=== PATIENT | male | born 1955 | race Caucasian/White ===

== ENCOUNTER 2017-09-15 11:01 | Emergency (ER) | payer BC ==
[2017-09-15 11:12] VITALS: BP 180/98
[2017-09-15] MEDS ORDERED: Aspirin 81 MG Tab.Chew PO ONE (11:36)
[2017-09-15] MEDS ORDERED: Sodium Chloride 0.9% 10 ML Syringe FLUSH PRN (11:36)
--- NOTE | 2017-09-15 11:42 | EDM.PDOC ---
ED HPI GENERAL MEDICAL PROBLEM - General Chief Complaint: Chest Pain Stated Complaint: SOB AND CHEST TIGHTNESS Time Seen by Provider: 09/15/17 11:38 Source of Information: Reports: Patient History Limitations: Reports: No Limitations - History of Present Illness INITIAL COMMENTS - FREE TEXT/NARRATIVE: 62-year-old male presents for evaluation and treatment of chest pain and shortness of breath. Patient reports she's been feeling unwell for the last week. He states yesterday he developed a tightness, achiness to the left side of his chest radiating to his left shoulder. He reports associated symptoms of nausea. He states that he gets very diaphoretic with exertion. Denies any current chest pain or discomfort. Denies any current shortness of breath. He states that he appreciated when he went outside this seemed to relieve his shortness of breath and chest discomfort. No edema, lightheadedness, dizziness, syncope or pain in the legs. Patient takes a baby aspirin daily. No history of any previous heart attacks. He did have a stress test about for 5 years ago which was unremarkable. Reports family history of father had an AK in the late 60s and grandparents with how however, they were older. Patient is not on any diabetic medications. He reports he is a borderline diabetic. Risk factors include morbid obesity, hypertension and hypercholesterolemia. He is not on any medications for his hypercholesterolemia or hypertension. Patient reports that he does get anxious and has panic attacks. He also talks about his neighbor who yesterday, unexpectedly. Left Chest Pain Score (Numeric/FACES): 1 - Related Data Allergies Allergy/AdvReac Type Severity Reaction Status Date / Time No Known Allergies Allergy Verified 09/15/17 11:13 Home Meds: Home Meds Allopurinol [Zyloprim] 300 mg PO DAILY 09/15/17 [History] Aspirin 81 mg PO DAILY 09/15/17 [History] Diclofenac Epolamine [Flector] 150 mg PO DAILY 09/15/17 [History] Gabapentin [Gralise] 300 mg PO DAILY 09/15/17 [History] Zolpidem [Ambien CR] 12.5 mg PO DAILY 09/15/17 [History] traMADol [Ultram] 100 mg PO Q4H PRN 09/15/17 [History] Past Medical History HEENT History: Reports: Impaired Vision Cardiovascular History: Reports: High Cholesterol Musculoskeletal History: Reports: Arthritis, Back Pain, Chronic Psychiatric History: Reports: Other (See Below) Other Psychiatric History: Patient reports severe claustrophobia Endocrine/Metabolic History: Reports: Obesity/BMI 30+ - Past Surgical History Neurological Surgical History: Reports: Lumbar Spine Other Neurological Surgeries/Procedures: L 4-5-6 Musculoskeletal Surgical History: Reports: Knee Replacement, Other (See Below) Other Musculoskeletal Surgeries/Procedures:: low back surgery L4-5-6 Social & Family History - Family History Family Medical History: Noncontributory ED ROS GENERAL - Review of Systems Review Of Systems: See Below Constitutional: Reports: Malaise, Diaphoresis (with light exertion). Denies: Fever, Decreased Appetite Respiratory: Reports: Shortness of Breath Cardiovascular: Reports: Chest Pain. Denies: Edema, Lightheadedness, Syncope GI/Abdominal: Reports: Nausea. Denies: Abdominal Pain, Diarrhea, Decreased Appetite, Vomiting Musculoskeletal: Reports: Arm Pain. Denies: Neck Pain, Back Pain Neurological: Denies: Syncope ED EXAM, GENERAL - Physical Exam Exam: See Below Exam Limited By: No Limitations General Appearance: Alert, WD/WN, No Apparent Distress Ears: Normal External Exam Nose: Normal Inspection Throat/Mouth: Normal Inspection, Normal Lips, Normal Voice, No Airway Compromise Respiratory/Chest: No Respiratory Distress, Lungs Clear, Normal Breath Sounds, Chest Non-Tender Cardiovascular: Normal Peripheral Pulses, Regular Rate, Rhythm, No Murmur GI/Abdominal: Soft, Non-Tender Neurological: Alert, Oriented, Normal Cognition Psychiatric: Normal Affect, Normal Mood Skin Exam: Warm, Dry, Normal Color EKG INTERPRETATION EKG Date: 09/15/17 Time: 11:10 Rhythm: NSR Rate (Beats/Min): 84 [place]: Normal P-Wave: Present QRS: RBBB ST-T: Normal QT: Normal EKG Interpretation Comments: NSR at 84 bpm. RBBB. No acute changes from EKG. Course - Vital Signs Last Recorded V/S: Last Vital Signs Temp 36.3 C 09/15/17 11:08 Pulse 86 09/15/17 11:08 Resp 16 09/15/17 11:08 BP 180/98 H 09/15/17 11:08 Pulse Ox 99 09/15/17 11:08 - Orders/Labs/Meds Orders: Active Orders 24 hr Category Date Time Status Cardiac Monitoring [RC] . DIRECTED Care 09/15/17 11:36 Active EKG 12 Lead [EKG Documentation Completion] [RC] STAT Care 09/15/17 11:36 Active Peripheral IV Care [RC] . DIRECTED Care 09/15/17 11:37 Active Peripheral IV Insertion Adult [OM.PC] Routine Oth 09/15/17 11:36 Ordered Labs: Laboratory Tests 09/15/17 09/15/17 09/15/17 Range/Units 11:58 11:58 11:58 WBC 8.63 (4.23-9.07) K/mm3 RBC 5.24 (4.63-6.08) M/mm3 Hgb 14.5 (13.7-17.5) gm/L Hct 44.4 (40.1-51.0) % MCV 84.7 (79.0-92.2) fl MCH 27.7 (25.7-32.2) pg MCHC 32.7 (32.2-35.5) g/dl RDW Std Deviation 46.8 H (35.1-43.9) fL Plt Count 283 (163-337) K/mm3 MPV 8.7 L (9.4-12.3) fl Neut % (Auto) 68.3 H (34.0-67.9) % Lymph % (Auto) 19.1 L (21.8-53.1) % [place] % (Auto) 9.5 (5.3-12.2) % Eos % (Auto) 2.2 (0.8-7.0) Baso % (Auto) 0.3 (0.1-1.2) % Neut # (Auto) 5.89 H (1.78-5.38) K/mm3 Lymph # (Auto) 1.65 (1.32-3.57) K/mm3 [place] # (Auto) 0.82 (0.30-0.82) K/mm3 Eos # (Auto) 0.19 (0.04-0.54) K/mm3 Baso # (Auto) 0.03 (0.01-0.08) K/mm3 PT 10.7 (8.0-13.0) SECONDS INR 1.00 APTT 29 (22-36) SECONDS Sodium 140 (136-145) mEq/L Potassium 4.6 (3.5-5.1) mEq/L Chloride 102 (98-107) mEq/L Carbon Dioxide 28 (21-32) mEq/L Anion Gap 14.6 (5-15) BUN 15 (7-18) mg/dL Creatinine 1.1 (0.7-1.3) mg/dL Est Cr Clr Drug Dosing 72.82 mL/min Estimated GFR (MDRD) > 60 (>60) mL/min BUN/Creatinine Ratio 13.6 L (14-18) Glucose 115 (80-115) mg/dL Calcium 9.4 (8.5-10.1) mg/dL Total Bilirubin 0.3 (0.2-1.0) mg/dL AST 45 H (15-37) U/L ALT 46 (16-63) U/L Alkaline Phosphatase 98 (46-116) U/L CK-MB (CK-2) 0.7 (0-3.6) ng/ml Troponin I < 0.017 (0.00-0.056) ng/mL Total Protein 7.9 (6.4-8.2) g/dl Albumin 3.9 (3.4-5.0) g/dl Globulin 4.0 gm/dL Albumin/Globulin Ratio 1.0 (1-2) Meds: Medications Discontinued Medications Generic Name Dose Route Start Last Admin Trade Name Freq PRN Reason Stop Dose Admin Aspirin 324 mg 09/15/17 11:36 09/15/17 11:46 Aspirin PO 09/15/17 11:37 324 mg ONETIME ONE Administration Sodium Chloride 10 ml 09/15/17 11:36 09/15/17 11:47 Saline Flush FLUSH 10 ml ASDIRECTED PRN Administration Keep Vein Open - Radiology Interpretation Free Text/Narrative:: Chest: Portable view of the chest was obtained. Comparison: No prior chest x-ray. Heart size and mediastinum are within normal limits for portable technique. Lungs are clear. Bony structures are grossly intact. Impression: 1. Nothing acute is identified on portable chest x-ray. - Re-Assessments/Exams Free Text/Narrative Re-Assessment/Exam: 09/15/17 14:00 I reviewed the labs, EKG and imaging with the patient. He has had no chest discomfort or shortness of breath since entering ER. I will have him follow-up with his primary care provider for recheck of his symptoms as well as to discuss a stress test since it has been about 4-5 years since his last stress test. Discharge instructions as documented. Departure - Departure Time of Disposition: 14:01 Disposition: Home, Self-Care 01 Condition: Fair Clinical Impression: Chest pain Qualifiers: Chest pain type: unspecified Qualified Code(s): R07.9 - Chest pain, unspecified Instructions: Nonspecific Chest Pain Referrals: Rosie Castellano [facility] [Primary Care Provider] - Forms: ED Department Discharge Additional Instructions: Continue with your current plan of care. Recommend follow-up with your primary care provider within 2 weeks for recheck of your symptoms. Also discuss a stress test as it may be time to revisit a stress test. Please return to the ER for symptoms change or worsen. - My Orders Last 24 Hours: My Active Orders 09/15/17 11:36 Cardiac Monitoring [RC] . DIRECTED EKG 12 Lead [EKG Documentation Completion] [RC] STAT Peripheral IV Insertion Adult [OM.PC] Routine 09/15/17 11:37 Peripheral IV Care [RC] . DIRECTED - Assessment/Plan Last 24 Hours: My Active Orders 09/15/17 11:36 Cardiac Monitoring [RC] . DIRECTED EKG 12 Lead [EKG Documentation Completion] [RC] STAT Peripheral IV Insertion Adult [OM.PC] Routine 09/15/17 11:37 Peripheral IV Care [RC] . DIRECTED
--- NOTE | 2017-09-15 16:12 | CR ---
Chest: Portable view of the chest was obtained. Comparison: No prior chest x-ray. Heart size and mediastinum are within normal limits for portable technique. Lungs are clear. Bony structures are grossly intact. Impression: 1. Nothing acute is identified on portable chest x-ray. Diagnostic code #1
== END 2017-09-15 14:28 | disposition home or self-care (01) ==
LOC: JD.ED 11:01
DX: R07.89 Other chest pain (principal); E78.00 Pure hypercholesterolemia, unspecified; Z79.82 Long term (current) use of aspirin; Z79.899 Other long term (current) drug therapy
CPT/HCPCS: 36415; 71045; 80053; 82553; 84484; 85025; 85610; 85730; 93005; 99285; A9270; J7050; 93010; 99284

== ENCOUNTER 2024-03-11 11:52 | Emergency (ER) | payer MEDICARE ==
[2024-03-11 16:02] VITALS: BP 165/105; PULSE 75
== END 2024-03-11 16:02 | disposition home or self-care (01) ==
LOC: JD.ED 11:52
DX: M71.21 Synovial cyst of popliteal space [Baker], right knee (principal); G89.29 Other chronic pain; I12.9 Hypertensive chronic kidney disease with stage 1 through stage 4 chronic kidney disease, or unspecified chronic kidney disease; N18.9 Chronic kidney disease, unspecified; E78.00 Pure hypercholesterolemia, unspecified; E11.22 Type 2 diabetes mellitus with diabetic chronic kidney disease; E66.9 Obesity, unspecified; Z79.899 Other long term (current) drug therapy; Z88.8 Allergy status to other drugs, medicaments and biological substances; Z91.048 Other nonmedicinal substance allergy status
CPT/HCPCS: 73562-26-RT; 73562-RT; 93971-26-RT; 93971-RT; 99284